=== PATIENT | female | born 1975 | race Caucasian/White ===

== ENCOUNTER → 2020-07-05 | Outpatient (CLI) | payer OTHER ==
[~2020-07-05] MED LIST: AZO STANDARD95 MG PO; FLONASE16 GM; LEVAQUIN 500 M500 M1 PO; NORCO 5-325 TA1 EACH PO; POTASSIUM CHLO20 ME1 PO; SERTRALINE HCL100 MG PO; ZOLOFT100 MG PO; ZYRTEC10 M2 PO
== END ==
LOC: LAB 15:18
PROVIDERS: ATTEND Anesthesiology
DX: Z01.812 Encounter for preprocedural laboratory examination (principal); Z20.828 Contact with and (suspected) exposure to other viral communicable diseases